=== PATIENT | male | born 2000 | race Two or more races ===

== ENCOUNTER 2021-11-11 19:54 | Emergency (ER) | payer MEDICAID ==
[~2021-11-11] VITALS: Ht 177.8 cm; Wt 104.3 kg
[2021-11-11] MEDS ORDERED: LIDOCAINE 1% (LOCAL ANESTH.) PF 5ml SDV ID ONE (20:15)
[2021-11-11] MEDS ORDERED: NEOMYCIN-BACITRACIN-POLYM UNITDOSE PKG TOP OINT TOP ONE (20:15)
[2021-11-11] MEDS ORDERED: HYDROcodone-ACET 5/325MG TAB PO ONE (20:45)
[2021-11-12 01:51] VITALS: BP 128/76
== END 2021-11-12 01:58 | disposition home or self-care (01) ==
LOC: ER 19:54
DX: S52.532A Colles' fracture of left radius, initial encounter for closed fracture (principal); W01.0XXA Fall on same level from slipping, tripping and stumbling without subsequent striking against object, initial encounter; Y93.23 Activity, snow (alpine) (downhill) skiing, snowboarding, sledding, tobogganing and snow tubing; Y92.89 Other specified places as the place of occurrence of the external cause; Y99.8 Other external cause status
CPT/HCPCS: 29125; 73110